=== PATIENT | male | born 1985 | race Caucasian/White ===

== ENCOUNTER 2017-09-24 13:27 | Emergency (ER) | payer OTHER ==
[~2017-09-24] VITALS: Ht 180.3 cm; Wt 118.8 kg
[~2017-09-24 13:27] MED LIST: CYCLOBENZAPRINE10 M1 PO; IBUPROFEN600 M1 PO; ZYRTEC10 M3 PO
[2017-09-24 13:30] VITALS: BP 130/82
--- NOTE | 2017-09-24 13:31 | ED ANIMAL BITE/WOUND CHECK ---
History of Present Illness General Chief Complaint: Suture Removal/Wound Recheck Stated Complaint: SUTURE REMOVAL (FOREHEAD) Source: patient Exam Limitations: no limitations Vital Signs & Intake/Output Vital Signs & Intake/Output Vital Signs Date Time Temp Pulse Resp B/P B/P Pulse O2 O2 Flow FiO2 Mean Ox Delivery Rate 09/24 1330 98.0 82 18 130/82 98 Room Air Room Air ED Intake and Output 09/25 0000 09/24 1200 Intake Total Output Total Balance Patient 262 lb Weight Weight Reported by Patient Measurement Method Allergies Coded Allergies: No Known Allergies (09/17/17) Reconcile Medications Cetirizine HCl (Zyrtec) 10 MG TABLET 1 TAB PO DAILY ALLERGIES (Reported) Cyclobenzaprine HCl 10 MG TABLET 1 TAB PO Q8P PAIN OR SPASM Ibuprofen 600 MG TABLET 1 TAB PO TID PRN PAIN with food Triage Nurses Notes Reviewed? yes Onset: Abrupt Duration: day(s): Timing: recent history HPI: 31-year-old male comes into the emergency room for suture removal to forehead. Denies any pain or swelling or redness or discharge. Denies any other symptoms. (Daniel Torres) Past History Travel History Traveled to [place] past 21 day No Medical History Any Pertinent Medical History? none Tetanus Vaccine: 09/17/17 Surgical History Surgical History: non-contributory Psychosocial History What is your primary language Danish Tobacco Use: Never used ETOH Use: denies use Illicit Drug Use: denies illicit drug use Family History Hx Contributory? No (Daniel Torres) Review of Systems Review of Systems Constitutional: Reports: no symptoms. EENTM: Reports: no symptoms. Respiratory: Reports: no symptoms. Cardiovascular: Reports: no symptoms. GI: Reports: no symptoms. Genitourinary: Reports: no symptoms. Musculoskeletal: Reports: no symptoms. Skin: Reports: see HPI. Neurological/Psychological: Reports: no symptoms. Hematologic/Endocrine: Reports: no symptoms. Immunologic/Allergic: Reports: no symptoms. All Other Systems: Reviewed and Negative (Daniel Torres) Physical Exam Physical Exam General Appearance: well developed/nourished, mild distress Head: SUTURES FACE Eyes: Bilateral: normal appearance. Ears, Nose, Throat: normal ENT inspection, hearing grossly normal Neck: normal inspection Respiratory: no respiratory distress Back: normal inspection Extremities: normal range of motion Neurologic/Psych: awake, alert, oriented x 3, normal mood/affect Skin: intact, normal color, warm/dry (Daniel Torres) Progress Differential Diagnosis: abscess, cellulitis, joint infection, tenosysnovitis Plan of Care: Suture removal from face. Return if any other concerns. (Daniel Torres) Departure Departure Disposition: HOME OR SELF CARE Condition: Stable Clinical Impression Primary Impression: Encounter for removal of sutures Referrals: Patient Has No Primary Care Dr (PCP/Family) Additional Instructions: Return if any other concerns worsening symptoms. Departure Forms: Customer Survey General Discharge Information (Daniel Torres) PA/ACTIVITY AIDE Co-Sign Statement Statement: ED Attending supervision documentation- [] I saw and evaluated the patient. I have also reviewed all the pertinent lab results and diagnostic results. I agree with the findings and the plan of care as documented in the PA's/ACTIVITY AIDE's documentation. [x] I have reviewed the ED Record and agree with the PA's/ACTIVITY AIDE's documentation. [] Additions or exceptions (if any) to the PAs/ACTIVITY AIDE's note and plan are summarized below: [] (Kathy RAI,[facility])
== END 2017-09-24 13:32 ==
LOC: ERH 13:27
DX: Z48.02 Encounter for removal of sutures (principal)